=== PATIENT | male | born 1985 | race Caucasian/White ===

== ENCOUNTER 2020-02-08 09:08 | Day surgery (SDC) | payer OTHER ==
[~2020-02-08] VITALS: Ht 177.8 cm; Wt 100.0 kg
[~2020-02-08 09:08] MED LIST: ALBUTEROL SULF8.5 GM INH
[2020-02-08 10:17] VITALS: BP 128/76; Ht 177.8 cm; Wt 100.0 kg
[2020-02-08] MEDS ORDERED: HYDROCODON-ACE1 EA10 PO (13:50)
--- NOTE | 2020-02-18 10:34 | OP ---
PATIENT NAME: SRIKANTH PINA MEDICAL RECORD: [id number] :87 LOCATION:[facility] ADMISSION DATE: SURGEON: MICHAEL RIBERA MD DATE OF OPERATION: 02/08/2020 PREOPERATIVE DIAGNOSIS: Painful posttraumatic fat necrosis of the right lower extremity. POSTOPERATIVE DIAGNOSIS: Painful posttraumatic fat necrosis of the right lower extremity. PROCEDURE: Excision of painful posttraumatic fat necrosis. SURGEON: Michael Ribera MD [employer]IAN: GALDINO Schultz INTRAOPERATIVE COMPLICATIONS: None. SUMMARY OF PATHOLOGIC FINDINGS: Upon incision of the patient's large area of fat necrosis, the two areas that were felt to be small bumps actually came out as round, spherical, very hard, necrotic fat nodules. All the excision was sent to pathology. INDICATIONS: Mr. Pina is a 34-year-old gentleman who evidently sustained an injury while falling through a rotten board. He battled with this for some time. When he came to me, the diagnosis was evident. As this did not resolve over several months, he decided to have this excised, which has been therapeutic in the past on patients with this condition. OPERATIVE SUMMARY IN DETAIL: After obtaining the appropriate preoperative orthopedic surgery consent as well as anesthetic consultation, evaluation and clearance, the patient was brought to the operating room and placed on the operating table in a supine position. After general laryngeal mask airway was administered, the patient's right lower extremity was prepped and draped in routine sterile fashion. The leg was elevated and exsanguinated, tourniquet was inflated to 350 mmHg after the appropriate timeout was taken and agreed upon by all given the patient's unique identifiers. Incision was made directly over the area of the fat necrosis. After incising the larger portion of the fat, further dissection revealed two spherical pea-size fat necrotic bodies that were sent along with pathology. Wound was then irrigated and closed with 2-0 Vicryl followed by 4-0 Prolene. Sterile dressings were applied. Tourniquet was deflated. The patient was awakened and taken to the recovery room in stable condition. All final needle and sponge counts were correct. TRANSINT:[id number] Voice Confirmation ID: [id number] DOCUMENT ID: [id number] OPERATIVE REPORT [id number] SILVANASRIKANTH RIBERA MD, MICHAEL HI at 1038 CC: [id number] DICTATION DATE: 02/18/20 0818 IMMIGRATION SPECIALIST: 02/18/20 0946 [facility] 02/08/20 [place] [id number] [place] [id number]
== END 2020-02-08 15:35 | disposition home or self-care (01) ==
LOC: D.OPS 09:08 → D.PAN 15:45
PROVIDERS: ATTEND Orthopaedic Surgery
DX: M79.89 Other specified soft tissue disorders (principal); M25.561 Pain in right knee; S89.81XA Other specified injuries of right lower leg, initial encounter; T79.8XXA Other early complications of trauma, initial encounter; X58.XXXA Exposure to other specified factors, initial encounter